=== PATIENT | female | born 1970 | race Caucasian/White ===

== ENCOUNTER 2018-10-30 05:52 | Inpatient (IN) | payer OTHER ==
[~2018-10-30 05:52] MED LIST: Buffered Lidocaine 1% SYRIN* 1 ML/SYRINGE INTRADERM ONE
[2018-10-30] MEDS ORDERED: Dexamethasone IV* 4 MG/ML 1 ML (4 MG) IV SLOW PU ONE (06:00)
[2018-10-30] MEDS ORDERED: Lactated Ringers 1000 ML Bag* 1,000 ML IV SCH (06:00)
[2018-10-30] MEDS ORDERED: Scopolamine 1.5 mg* PATCH TRANSDERM ONE (06:00)
[2018-10-30] MEDS ORDERED: ceFAZolin 1 GM ADVAN(*) 1 GM ADDV.VIAL IVPB ONE (06:18)
[2018-10-30] MEDS ORDERED: Buffered Lidocaine 1% SYRIN* 1 ML/SYRINGE INTRADERM ONE (06:18)
[2018-10-30] MEDS ORDERED: Scopolamine 1.5 mg* PATCH ONE (06:18)
[2018-10-30] MEDS ORDERED: Dexamethasone IV* 4 MG/ML 1 ML (4 MG) ONE (06:18)
[2018-10-30] MEDS ORDERED: Heparin VIAL(*) 5000 UNITS/ML VIAL (FIVE THOUSAND) ONE (06:18)
[2018-10-30] MEDS ORDERED: ceFAZolin 2 GM in NS PREMIX(*) 2 GM/100 ML BAG IVPB ONE (06:19)
[2018-10-30] MEDS ORDERED: Bupivacaine 0.25% W/EPI* 10 ML SDV ONE ×2 (07:00→07:01)
[2018-10-30] MEDS ORDERED: Midazolam* 1 MG/ML 2 ML VIAL (2 MG) ONE (07:15)
[2018-10-30] MEDS ORDERED: fentaNYL* 50 MCG/ML 5 ML VIAL (250 MCG VIAL) ONE (07:15)
[2018-10-30] MEDS ORDERED: Rocuronium* 10 MG/ML VIAL ONE (07:15)
[2018-10-30] MEDS ORDERED: Lidocaine 2% PF * 5 ML VIAL ONE (07:16)
[2018-10-30] MEDS ORDERED: Succinylcholine* 20 MG/ML 10 ML VIAL ONE (07:16)
[2018-10-30] MEDS ORDERED: Propofol* 10 MG/ML 20 ML BTL ONE (07:16)
[2018-10-30] MEDS ORDERED: Naloxone* 0.4 MG/ML 1 ML VIAL IV PRN (08:31)
[2018-10-30] MEDS ORDERED: PROCHLORPERAZINE INJ 5 MG/ML 2 ML VIAL IV PRN (08:31)
[2018-10-30] MEDS ORDERED: HYDROmorphone INJ1* 1 MG/ML SYRINGE IV PRN (08:31)
[2018-10-30] MEDS ORDERED: DiMENhydriNATE IV* 50 MG/ML VIAL IV PUSH PRN (08:31)
[2018-10-30] MEDS ORDERED: Acetaminophen IV 1GM/100ML * 1,000 MG/100 ML VIAL IVPB ONE (08:31)
[2018-10-30] MEDS ORDERED: Ketorolac INJ* 30 MG/ML 1 ML VIAL IV PRN ×2 (08:31→09:56)
[2018-10-30] MEDS ORDERED: Ondansetron INJ* 2 MG/ML VIAL ONE (09:21)
[2018-10-30] MEDS ORDERED: EPHEDrine (Pressors)* 50 MG/ML VIAL ONE (09:22)
[2018-10-30] MEDS ORDERED: fentaNYL* 50 MCG/ML 2 ML VIAL (100 MCG VIAL) ONE ×2 (09:55→10:22)
--- NOTE | 2018-10-30 09:55 | OP ---
Operative Report - Blank - Operative Report Date of Operation: 10/30/18 Note: Brief Operative Note Preop Dx: Class III obesity Postop Dx: same Procedure: laparoscopic sleeve gastrectomy Anesthesia: GET Surgeon: Dana Background Investigator: SHANKAR Montes; MALATHI Qureshi Fluids: 2 liters RL EBL: 60 ml Specimen: portion of stomach Drains: none Findings: as above Complications: none
[2018-10-30] MEDS ORDERED: Acetaminophen ADULT LIQ* 650 MG/20.3 ML UDC PO PRN ×2 (09:56→17:00)
[2018-10-30] MEDS ORDERED: HYDROmorphone INJ1* 1 MG/ML SYRINGE IV SLOW PU PRN (09:56)
[2018-10-30] MEDS: fentaNYL* 50 MCG/ML 2 ML VIAL (100 MCG VIAL) IV PRN ×3 (09:56→10:25)
[2018-10-30] MEDS ORDERED: HYDROcodone/ACET. 7.5/325 LIQ* 15 ML UDC PO PRN (09:56)
[2018-10-30] MEDS ORDERED: PROCHLORPERAZINE INJ 5 MG/ML 2 ML VIAL ONE (10:33)
[2018-10-30] MEDS ORDERED: Acetaminophen IV 1GM/100ML * 100 ML ONE (10:38)
[2018-10-30] MEDS ORDERED: Ketorolac INJ* 30 MG/ML 1 ML VIAL ONE (10:38)
[2018-10-30] MEDS ORDERED: HYDROmorphone INJ1* 1 MG/ML SYRINGE ONE (10:55)
[2018-10-30] MEDS: Lactated Ringers 1000 ML Bag* 1,000 ML IV SCH ×2 (12:19→18:42)
[2018-10-30] MEDS: Ondansetron INJ* 2 MG/ML VIAL IV PRN ×2 (13:28→20:30)
[2018-10-30] MEDS: Heparin VIAL(*) 5000 UNITS/ML VIAL (FIVE THOUSAND) SUBCUT SCH ×2 (13:28→22:05)
[2018-10-30] MEDS: Ketorolac INJ* 30 MG/ML 1 ML VIAL IV PRN ×2 (16:27→23:55)
[2018-10-30] MEDS: HYDROmorphone INJ1* 1 MG/ML SYRINGE IV SLOW PU PRN ×2 (16:56→22:04)
[2018-10-30] MEDS: Famotidine IV* 10 MG/ML 2 ML (20 mg) IV SLOW PU SCH (20:30)
--- NOTE | 2018-10-30 21:11 | OP ---
CC: [facility]; Meeta BatresBETH monsivais * DATE OF OPERATION: 10/30/18 - ROOM #342 DATE OF : 68 SURGEON: Hudson Cortez MD. ENGINEERING CONSULTANT: SHANKAR Acosta. ANESTHESIOLOGIST: Dr. Sandoval. ANESTHESIA: General anesthesia. PRE-OP DIAGNOSES: 1. Clinically severe obesity. 2. Hypertension. 3. Hypercholesterolemia. 4. Gastroesophageal reflux disease. 5. Obstructive sleep apnea. POST-OP DIAGNOSES: 1. Clinically severe obesity. 2. Hypertension. 3. Hypercholesterolemia. 4. Gastroesophageal reflux disease. 5. Obstructive sleep apnea. OPERATIVE PROCEDURE: Laparoscopic sleeve gastrectomy. BLOOD LOSS: 60 cc. IV FLUIDS: 2 L of lactated Ringer's. SPECIMENS: Portion of stomach. DRAINS: None. DESCRIPTION OF PROCEDURE: The patient was identified in the preoperative area. She was marked. Consent was signed, taken to the operating room, placed on the operating room table in the supine position. Preoperative antibiotics were given. Sequential devices were placed on bilateral lower extremities. General anesthesia was induced. The patient's abdomen was prepped and draped in standard surgical fashion. Time-out was performed. Folds in the umbilicus were elevated anteriorly and a Veress needle inserted into the abdominal cavity which was then allowed to insufflate to a pressure of 15 mmHg. The patient tolerated the insufflation well. [place] between the xiphoid and the umbilicus just left of midline, a 12-mm optical trocar was inserted. The Veress needle which was identified and noted to be safe was then removed. We then placed 12 mm in the right upper quadrant and two 5 mm in the left upper quadrant. The patient was placed in steep reverse Trendelenburg. A Julia retractor was inserted and the liver was retracted anteriorly to the right. This exposed the gastroesophageal fat pad. Review of the abdomen showed normal appearing bowel and stomach. OG tube in place and this was removed after suctioning in the stomach. Next, the gastroesophageal fat pad was retracted to the right lower quadrant and blunt dissection was carried out to expose the left crura. Next, a retrogastric tunnel was made 6 cm proximal to the pylorus along the greater curvature. Dissection was carried out taking the vasculature to the greater curvature right up to the angle of His that was previously dissected. Posterior attachments were similarly taken. Next, a sleeve stomach was created using 60 mm arthur KALANI stapling devices with reinforcement strips in the standard fashion over a 40 [place] bougie. Bougie was removed. The staple line appeared intact without any twisting. The transected portion of the stomach was placed in an endoscopic retrieval bag. Review of the cut edge showed no bleeding with the exception of the first staple area. The initial dissection showed evidence of some bleeding at this site. We did use suction and ultimately gained hemostasis with LigaSure device. Next, the stomach was removed through the right upper quadrant port site with the endoscopic retrieval bag. It was passed out as specimen. We then closed the fascia at this port with 0 Vicryl suture using a Weck device. Next the Julia retractor was removed and the liver fell back down onto the sleeve stomach but the staple line was still exposed and again it was straight and intact. The abdomen was allowed to collapse, trocars were removed under direct vision, and all incisions were reapproximated with 4-0 Monocryl subcuticular stitches followed by Steri-Strips and sterile dressing. The patient tolerated the procedure well, was woken up in the ER and transferred to the PACU in stable condition. [id number]/[facility] #: [id number] ROSIE
[2018-10-31] MEDS: Lactated Ringers 1000 ML Bag* 1,000 ML IV SCH (01:28)
[2018-10-31] MEDS: Ketorolac INJ* 30 MG/ML 1 ML VIAL IV PRN ×3 (05:58→19:28)
[2018-10-31] MEDS: Heparin VIAL(*) 5000 UNITS/ML VIAL (FIVE THOUSAND) SUBCUT SCH ×3 (05:59→22:24)
[2018-10-31] MEDS: Famotidine IV* 10 MG/ML 2 ML (20 mg) IV SLOW PU SCH ×2 (08:11→20:43)
[2018-10-31] MEDS: Ondansetron INJ* 2 MG/ML VIAL IV PRN ×2 (09:27→22:28)
[2018-10-31] MEDS: D5W 1/2 NS KCl 20 Meq 1000 ML* 1,000 ML IV SCH ×2 (09:29→20:42)
--- NOTE | 2018-10-31 09:58 | PN ---
Progress Note - Progress Note Date of Service: 10/31/18 SOAP: Subjective: pt seen and examined. Feels well. some nausea Objective: Temp Pulse Resp BP Pulse Ox 98.5 F 53 16 122/59 98 10/31/18 07:25 10/31/18 07:25 10/31/18 08:40 10/31/18 07:25 10/31/18 07:25 UOP good a and o x3, nad lungs clear abdo: soft/ ND/ tender at RUQ ext wnl UGI Report P; no leak Assessment: POD 1 sleeve Plan: kiana crespo possibel d/c tomorrow
[2018-11-01] MEDS: Ketorolac INJ* 30 MG/ML 1 ML VIAL IV PRN (04:06)
[2018-11-01] MEDS: D5W 1/2 NS KCl 20 Meq 1000 ML* 1,000 ML IV SCH (04:11)
[2018-11-01] MEDS: Heparin VIAL(*) 5000 UNITS/ML VIAL (FIVE THOUSAND) SUBCUT SCH (06:14)
--- NOTE | 2018-11-01 08:49 | PN ---
Progress Note - Progress Note Date of Service: 11/01/18 Note: S: POD #2. Had some difficulty last evening with drinking, but feels better this a.m. Has not been recording regularly (encouraged to do so). No N/V. Passing flatus and had some loose stool last pm. Ambulating. O: Vital Signs - 8 hr 11/01/18 11/01/18 03:41 08:07 Temperature 97.9 F 98.1 F Pulse Rate 51 52 Respiratory 16 16 Rate Blood Pressure 151/71 132/69 (mmHg) O2 Sat by Pulse 98 98 Oximetry Intake and Output Last 24 Hours 10/30/18 10/31/18 11/01/18 11/02/18 06:59 06:59 06:59 06:59 Intake Total 3915 3065 Output Total 1600 3700 700 Balance 2315 -505 -700 Weight 241 lb Intake: IV Fluids 3915 2865 LR 3915 2865 Oral 0 200 Output: Urine 1600 3700 700 Other: Estimated Void Medium Date of Last Bowel 11/01/18 Movement # Bowel Movements 0 1 Estimated Stool Amount Small Small # Voids 1 Gen: appears comfortable, sitting up in bed Heart: reg Lungs: clear ant Abd: lap sites clean and dry w/ the exception of the RUQ incision where the dsg is saturated. DSD placed. +BS. Soft, min tenderness, mostly at RUQ incision. A: s/p lap sleeve gastrectomy, progressing P: likely home later today pending adeq po intake; instructions reviewed
[2018-11-01] MEDS: Famotidine IV* 10 MG/ML 2 ML (20 mg) IV SLOW PU SCH (08:52)
[2018-11-01 12:00] VITALS: BP 149/73
--- NOTE | 2018-11-01 16:39 | DS ---
CC: [facility]; Meeta Poe NP, at [facility] * DISCHARGE SUMMARY: DATE OF ADMISSION: 10/30/18 DATE OF DISCHARGE: 11/01/18 ATTENDING SURGEON: Dr. Hudson Cortez.* (DICTATED BY SHANKAR MERINO) HOSPITAL COURSE: Please refer to admission history and physical and operative note for details. The patient was taken to the operating room on 10/30/18 and underwent laparoscopic sleeve gastrectomy with Dr. Cortez. Surgery itself was uneventful. The patient has had an expected postoperative course with gradual improvement in pain and tolerance of bariatric clear liquids. She is tolerating 30 cc at least 3 times per hour consistently as of the morning of discharge. She was also seen by Dr. Cortez (see separate progress note from the same date). She will resume her usual home medications. She has an existing prescription for hydrocodone elixir p.r.n. for mild pain. She has an appointment scheduled at [facility] for next week. Dietary and wound care instructions were also reviewed. She is discharged to home in good condition. SHANKAR MERINO [id number]/[facility] #: [id number] [facility]
== END 2018-11-01 12:45 | disposition home or self-care (01) | DRG 621 ==
LOC: AA 05:52 → SSU 09:56
PROVIDERS: ADMIT Surgery; ATTEND Surgery
PROC: 0DB64Z3 Excision of Stomach, Percutaneous Endoscopic Approach, Vertical (ICD-10-PCS; principal; 2018-10-30 07:30)
DX: E66.01 Morbid (severe) obesity due to excess calories (principal); Z68.41 Body mass index [BMI] 40.0-44.9, adult; G47.33 Obstructive sleep apnea (adult) (pediatric); K21.9 Gastro-esophageal reflux disease without esophagitis; E78.5 Hyperlipidemia, unspecified; I10 Essential (primary) hypertension; E78.00 Pure hypercholesterolemia, unspecified; F41.9 Anxiety disorder, unspecified; F32.9 Major depressive disorder, single episode, unspecified; N83.209 Unspecified ovarian cyst, unspecified side; Z83.3 Family history of diabetes mellitus; Z82.49 Family history of ischemic heart disease and other diseases of the circulatory system; Z84.1 Family history of disorders of kidney and ureter; Z83.49 Family history of other endocrine, nutritional and metabolic diseases; Z72.89 Other problems related to lifestyle; Z80.0 Family history of malignant neoplasm of digestive organs; Z80.3 Family history of malignant neoplasm of breast
CPT/HCPCS: 43775; 74246; 81025; 88307; A9270-GY; J0330; J0690; J0780; J1100; J1170; J1644; J1885; J2250; J2405; J2704; J3010

== ENCOUNTER 2020-12-26 14:44 | Observation (INO) ==
[2020-12-26] MEDS ORDERED: Ondansetron ODT 4 mg TAB 4 MG TAB SL ONE (17:48)
[2020-12-26] MEDS ORDERED: Ondansetron ODT 4 mg TAB 4 MG TAB ONE (17:48)
[2020-12-26] MEDS: Lactated Ringers 1000 ml BAG 1,000 ML IV ONE ×2 (20:40→22:00)
[2020-12-26] MEDS: Ondansetron 4 mg VIAL 2 MG/ML 2 ml VIAL IV ONE (20:40)
[2020-12-26 21:15] LABS: ABS Lymphocytes 0.7 10^3/ul (1.0-4.8); ABS Monocytes 0.2 10^3/ul (0-0.8); ABS Neutrophils 11.1 10^3/ul (1.5-7.7); Hematocrit 41 % (35-47); Hemoglobin 13.9 g/dL (12.0-16.0); Lymphocyte % 5.6 %; Mean Corpuscular HGB Conc 34 g/dL (31-36); Mean Corpuscular Hemoglobin 33 pg (27-31); Mean Corpuscular Volume 97 fL (80-97); Mean Platelet Volume 9.2 fL (7.4-10.4); Platelet Count 247 10^3/uL (150-450); Red Blood Count 4.22 10^6 /uL (3.70-4.87); Red Cell Distribution Width 13 % (10-15); White Blood Count 11.9 10^3/uL (3.5-10.8)
[2020-12-26 21:36] LABS: Blood Urea Nitrogen 14 mg/dL (6-24); C Reactive Protein 6.18 mg/L (<8.01); Lipase < 10 U/L (11.0-82.0)
[2020-12-26] MEDS ORDERED: Lactated Ringers 1000 ml BAG 1,000 ML IV ONE (22:15)
[2020-12-26 22:29] LABS: Calcium 9.5 mg/dL (8.6-10.3)
[2020-12-26 22:49] LABS: Anion Gap 10 mmol/L (2-11); CO2 Carbon Dioxide 23 mmol/L (22-32); Chloride 101 mmol/L (101-111); Glucose 118 mg/dL (70-100); Sodium 134 mmol/L (135-145)
[2020-12-26 22:50] LABS: Albumin 4.3 g/dL (3.2-5.2); Albumin/Globulin Ratio 1.7 (1-3); Alkaline Phosphatase 52 U/L (35-149); Globulin 2.5 g/dL (2-4); Total Protein 6.8 g/dL (6.4-8.9)
[2020-12-26 22:51] LABS: ALT 27 U/L (7-52); EGFR Non-African American 136.4 (>60)
[2020-12-26] MEDS ORDERED: Iohexol 300 (CONTRAST) 10 ML SDV IV ONE (23:10)
[2020-12-26] MEDS ORDERED: Morphine 4 MG/ML VIAL (1 ml) IV ONE (23:23)
[2020-12-26 23:30] LABS: Magnesium 1.7 mg/dL (1.9-2.7); Potassium Redraw 3.6 mmol/L (3.5-5.0)
[2020-12-26] MEDS ORDERED: Piperacillin/Tazobac ADVAN 3.375 GM in NS 0.9% 100 ml BAG 100 ML IVPB ONE (23:37)
[2020-12-26] MEDS ORDERED: Magnesium Sulfate 2 gm BAG 2 GM/50 ML BAG IVPB ONE (23:38)
[2020-12-27] MEDS: Ondansetron 4 mg VIAL 2 MG/ML 2 ml VIAL IV ONE (00:28)
[2020-12-27 00:54] LABS: Rapid COVID-19 Molecular Undetected (Undetected)
[2020-12-27] MEDS ORDERED: fentaNYL 100 mcg/2 ml 50 MCG/ML VIAL ONE (00:54)
[2020-12-27] MEDS ORDERED: Midazolam 2 mg/2 ml VIAL 1 mg/ml 2 ml VIAL (2 mg) ONE (00:54)
[2020-12-27] MEDS ORDERED: Rocuronium 50 mg VIAL 10 mg/ml 5 ml VIAL (50 mg) ONE (00:55)
[2020-12-27] MEDS ORDERED: HYDROmorphone 1 MG/1 ML SYRINGE IV SLOW PU PRN (01:01)
[2020-12-27] MEDS ORDERED: Ondansetron 4 mg VIAL 2 MG/ML 2 ml VIAL IV PRN (01:01)
[2020-12-27] MEDS ORDERED: Bupivacaine 0.25% EPI 200,000 30 ML SDV ONE (01:12)
[2020-12-27] MEDS ORDERED: Metoclopramide 5 MG/ML VIAL (10 mg) ONE (01:21)
[2020-12-27] MEDS ORDERED: Dexamethasone IV 4 MG/ML VIAL 1 ml VIAL ONE (01:49)
[2020-12-27] MEDS ORDERED: Ondansetron 4 mg VIAL 2 MG/ML 2 ml VIAL ONE (01:49)
[2020-12-27] MEDS ORDERED: Phenylephrine 40 mcg/mL 10mL (400mcg) SYRINGE ONE (01:59)
[2020-12-27] MEDS: Lactated Ringers 1000 ml BAG 1,000 ML IV SCH ×2 (03:44→11:00)
[2020-12-27] MEDS: oxyCODONE/Acetamin 5/325 mg TAB PO PRN ×2 (13:33→19:42)
[2020-12-28] MEDS: oxyCODONE/Acetamin 5/325 mg TAB PO PRN ×4 (00:23→13:34)
[2020-12-28 12:16] VITALS: BP 117/66
== END 2020-12-28 15:00 | disposition home or self-care (01) ==
LOC: ED 14:44 → OR 12-27 01:01 → SSU 12-27 01:01 → OR 12-27 01:24
PROVIDERS: ADMIT Surgery; ATTEND Surgery

== ENCOUNTER 2023-02-08 10:48 | Observation (INO) ==
[~2023-02-08 10:48] MED LIST changes: -Buffered Lidocaine 1% SYRIN* 1 ML/SYRINGE INTRADERM ONE; +Naloxone 0.4 mg VIAL 0.4 mg/ml 1 ml VIAL IV PUSH PRN
[2023-02-08] MEDS ORDERED: Clindamycin 900 MG IVPREMIX- Q8H IVPB ONE (11:00)
[2023-02-08] MEDS ORDERED: oxyCODONE SR 10 mg TAB ONE (11:18)
[2023-02-08] MEDS ORDERED: Scopolamine 1 mg/72hr PATCH ONE (11:18)
[2023-02-08] MEDS ORDERED: Ondansetron 4 mg VIAL 2 MG/ML 2 ml VIAL ONE (11:18)
[2023-02-08] MEDS ORDERED: HYDROmorphone PCA 20 MG/20 ML PCA.SYRING PCA SCH (13:00)
[2023-02-08 13:01] LABS: ABS Basophils 0.1 10^3/uL (0.0-0.1); ABS Eosinophils 0.1 10^3/uL (0.0-0.5); ABS Lymphocytes 1.3 10^3/uL (1.0-4.8); ABS Monocytes 0.3 10^3/uL (0.0-0.9); ABS Neutrophils 3.9 10^3/uL (1.5-7.6); Eosinophil % 1.4 %; Hematocrit 38.6 % (35-45); Hemoglobin 13.3 g/dL (11.5-14.3); Lymphocyte % 22.8 %; Mean Corpuscular Hemoglobin 31.6 pg (27-33); Mean Corpuscular Hgb Conc 34.3 g/dL (31-36); Mean Platelet Volume 8.5 fL (7.5-11.2); Platelet Count 253 10^3/uL (150-450); Red Cell Distribution Width 15.3 % (12-17); White Blood Count 5.6 10^3/uL (3.8-11.8)
[2023-02-08 13:09] LABS: Activated Partial Thrombo Time 31.4 seconds (26.0-38.0); INR 1.02 (0.83-1.13)
[2023-02-08] MEDS ORDERED: Lidocaine 1% VIAL 10 MG/ML 30 ML VIAL ONE (13:12)
[2023-02-08] MEDS ORDERED: Iohexol 350 (CONTRAST) 100 ML PAK IV ONE ×2 (13:12→14:39)
[2023-02-08] MEDS ORDERED: Heparin 2 UNITS/ML IVPREMIX 3,000 UNIT/1,500 ML BAG IV ONE (13:13)
[2023-02-08 13:20] LABS: Anion Gap 6 mmol/L (2-16); Blood Urea Nitrogen 9 mg/dL (6-24); CO2 Carbon Dioxide 27 mmol/L (22-32); Calcium 9.1 mg/dL (8.6-10.3); Chloride 106 mmol/L (101-111); Creatinine, Serum 0.64 mg/dL (0.51-0.95); Glucose 82 mg/dL (70-100); Potassium 3.6 mmol/L (3.5-5.0); Sodium 139 mmol/L (135-145); eGFR CKD-EPI 105.6 (>60)
[2023-02-08 13:27] LABS: HCG Pregnancy < 0.60 mIU/mL
[2023-02-08] MEDS ORDERED: Midazolam 5 mg/5 ml VIAL 1 mg/ml 5 ml VIAL (5 mg) ONE (13:39)
[2023-02-08] MEDS ORDERED: fentaNYL 100 mcg/2 ml 50 MCG/ML VIAL ONE ×2 (13:39→14:48)
[2023-02-08] MEDS ORDERED: HYDROmorphone 0.5 MG/0.5 ML SYRINGE ONE (15:29)
[2023-02-08] MEDS: NS 0.9% 1,000 ML IV SCH ×3 (15:30→23:30)
[2023-02-08] MEDS: Ondansetron 4 mg VIAL 2 MG/ML 2 ml VIAL IV SCH (21:52)
[2023-02-09] MEDS: Ondansetron 4 mg VIAL 2 MG/ML 2 ml VIAL IV SCH ×2 (05:26→08:39)
[2023-02-09] MEDS ORDERED: HYDROcodone/ACETAMIN 5/325 mg TAB PO PRN (08:30)
[2023-02-09] MEDS ORDERED: Ketorolac 10 mg TAB (NF) PO SCH ×2 (09:00→15:00)
[2023-02-09] MEDS ORDERED: Multivitamins/Minerals TAB PO SCH (09:00)
[2023-02-09 10:05] VITALS: BP 120/60
== END 2023-02-09 10:37 | disposition home or self-care (01) ==
LOC: SSU 10:48 → CHICATH 10:48
PROVIDERS: ADMIT Internal Medicine; ATTEND Internal Medicine
PROC: ANG.UFE (2023-02-08 12:10)